=== PATIENT | male | born 1945 | race Caucasian/White ===

== ENCOUNTER 2021-08-03 03:00 | Outpatient (CLI) | payer OTHER, SELFPAY ==
[2021-08-03 12:14] LABS: Source Nasal/Nares
[2021-08-03 15:16] LABS: COVID-19 PCR Negative (Negative)
== END 2021-08-03 03:01 | disposition home or self-care (01) ==
LOC: LBO 03:00
PROVIDERS: PCP Internal Medicine; Visit Provider Ophthalmology
DX: Z20.822 Contact with and (suspected) exposure to COVID-19 (principal); Z01.818 Encounter for other preprocedural examination
CPT/HCPCS: 87635

== ENCOUNTER 2021-08-05 07:58 | Day surgery (SDC) | payer OTHER, SELFPAY ==
[2021-08-05 08:30] VITALS: BP 153/79; PULSE 76; RESP 18; TEMP 36.5; O2SAT 94
[2021-08-05] MEDS: Tropicam./Phenyleph. (1/2.5%) 5 ML BTL OS ×3 (08:52→09:04)
--- NOTE | 2021-08-05 09:27 | ANES.PREOP_ITS ---
General Info Date of Service Date Performed: 08/05/21 Height: 6 ft Weight: 113.4 kg Body Mass Index (BMI): 33.9 Surgical Procedure: Operation Date: 08/05/21 10:40 Proposed Procedures Side Surgeon p Cataract Extraction with IOL Implant Left Aristeo Miguel MD Meds Allergies and Home Medications Allergies Allergy/AdvReac Type Severity Reaction Status Date / Time No Known Allergies Allergy Verified 08/05/21 08:40 Home Medication Medication Instructions Recorded albuterol sulfate 90 mcg/actuation 2 puff INHALATION Q6H PRN 04/15/21 aerosol inhaler allopurinol 300 mg tablet 300 mg PO DAILY 04/15/21 atorvastatin 40 mg tablet 20 mg PO DAILY tab 04/15/21 budesonide-formoterol HFA 160 2 puff INHALATION BID 04/15/21 mcg-4.5 mcg/actuation aerosol inhaler cetirizine 10 mg tablet 10 mg PO DAILY PRN 04/15/21 finasteride 5 mg tablet 5 mg PO DAILY 04/15/21 furosemide 40 mg tablet 40 mg PO DAILY 04/15/21 mometasone 0.1 % topical cream 1 applic TOPICAL DAILY 04/15/21 multivitamin,tx-minerals 1 cap PO DAILY 04/15/21 omeprazole 20 mg capsule,delayed 20 mg PO DAILY 04/15/21 release pimecrolimus 1 % topical cream 1 applic TOPICAL BID 04/15/21 propranolol 80 mg tablet 80 mg PO DAILY tab 04/15/21 Current Visit Medications: Current Medications Generic Name Dose Route Start Last Admin Trade Name Freq PRN Reason Stop Dose Admin Acetaminophen 1,000 mg 08/05/21 06:00 Acetaminophen 500 Mg Tab PO Q4H PRN PRN Miscellaneous Medication 0 ml 08/05/21 06:00 Prednisolone 1%, Moxifloxacin 0.5%, Nepafenac 0.1% 5ml Btl OS DIRECTED [facility] Miscellaneous Medication 0 ml 08/05/21 06:00 08/05/21 09:04 Tropicam./Phenyleph. 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 Kuo [facility] History of esophagogastroduodenoscopy (EGD) 07/18/2016 Dr. uKo [facility] History of gastric surgery stomach infection Tobacco Smoking/Tobacco Use Status: Former Tobacco Use Alcohol Alcohol Intake: current Alcohol intake frequency: 3 or more drinks per day Alcohol type: hard liquor Substance Use Substance use: Never Substance use type: does not use Vital Signs and Lab Results Vital Signs Most Recent Vital Signs in EMR: Most Recent Vital Signs Temp Pulse Resp BP Pulse Ox 36.5 C 76 18 153/79 H 94 08/05/21 08:30 08/05/21 08:30 08/05/21 08:30 08/05/21 08:30 08/05/21 08:30 Lab Results Blood Type / Crossmatch: No Data to Display Complete Blood Count: No Data to Display Complete Metabolic Panel: No Data to Display Liver Function Panel: No Data to Display Coagulation Panel: No Data to Display Cardiac Panel: No Data to Display Arterial Blood Gas: No Data to Display Venous Blood Gas: No Data to Display Pancreas Panel: No Data to Display Thyroid Panel: No Data to Display Infectious Disease: Coronavirus (COVID-19)(PCR) Negative (Negative) 08/03/21 09:53 08/03/21 Coronavirus 2019 Source Nasal/Nares 08/03/21 09:53 08/03/21 Blood Cultures: No Data to Display Toxicology Panel: No Data to Display Anesthesia Assessment and Plan Anesthesia History Personal History: No History of Anesthesia Complications Family History: No Family History of Anesthesia Complications Exercise Tolerance Exercise Tolerance: Metabolic Equivalents<4 Pertinent Negatives Pertinent Negatives: No Symptoms of GERD Cardiac & Pulmonary Exam Cardiac Exam: Normal S1/S2 Heart Sounds Pulmonary Exam: Clear Bilateral Breath Sounds Implantable Cardiac Device Does patient have a Pacemaker or an ICD?: No Airway Exam Known Difficult Airway: No Mallampati Class: 3 Mouth Opening: Normal (> 3cm) Thyromental Distance: Less than 3 cm Neck Range of Motion: Full ROM Neck Circumference: Normal Teeth Condition: Normal Dentition ASA Classification ASA Score: ASA 2 Emergency Case?: No NPO Status NPO Status: NPO Clears >2 hours, Solids >8 hours Anesthesia Plan Resuscitation Status: Full Code Anesthesia Technique: MAC Anesthesia Airway Planned: Natural Airway Monitors Used: Standard Monitors
[2021-08-05 09:29] VITALS: BMI 33.9
[2021-08-05] MEDS: Lidocaine 2% Jelly 6 ML SYR (10:11)
[2021-08-05] MEDS: Povidone-Iodine Ophth 30 ML BTL (10:11)
[2021-08-05] MEDS: Tetracaine 0.5% 4 ML BTL OS (10:11)
[2021-08-05] MEDS: Duovisc Viscoelastic System EACH 1 EACH (10:16)
[2021-08-05] MEDS: Balanced Salt Soln.-PLUS 500 ML BAG (10:21)
[2021-08-05] MEDS: Trypan Blue 0.06% 0.5 ML SYR (10:25)
[2021-08-05 10:50] VITALS: BP 171/59; PULSE 78; RESP 18; TEMP 36.3; O2SAT 95
--- NOTE | 2021-08-05 10:51 | W.PM.DSUDISC ---
Discharge Plan Disposition Patient Disposition: HOME Condition: Good Discharge Details Attending Provider: Aristeo Miguel Primary Care Provider: Jhonatan Almazan Home Meds and New Rx's Prescriptions: No Action mometasone 0.1 % cream 1 applic topical DAILY RF: 0 albuterol sulfate 90 mcg/actuation HFA aerosol inhaler 2 puff inhalation Q6H PRNRF: 0 atorvastatin 40 mg tablet 20 mg PO DAILY RF: 0 finasteride 5 mg tablet 5 mg PO DAILY RF: 0 furosemide 40 mg tablet 40 mg PO DAILY RF: 0 pimecrolimus 1 % cream 1 applic topical BID RF: 0 propranolol 80 mg tablet 80 mg PO DAILY RF: 0 multivitamin,tx-minerals Capsule 1 cap PO DAILY RF: 0 omeprazole 20 mg capsule,delayed release(DR/EC) 20 mg PO DAILY RF: 0 budesonide-formoterol 160-4.5 mcg/actuation HFA aerosol inhaler 2 puff inhalation BID RF: 0 allopurinol 300 mg tablet 300 mg PO DAILY RF: 0 cetirizine [24Hour Allergy] 10 mg tablet 10 mg PO DAILY PRNRF: 0 Discharge Instructions Stand Alone Forms: Post-op Topical Cataract, Chhaya Simeon (DSU) Discharge Orders Discharge Orders: Discharge Order (Routine); Ordered 08/05/21 Ordered By: Aristeo Miguel DS: Diagnosis Discharge Diagnosis (1) Cortical cataract of left eye: Status: Resolved (2) Nuclear sclerotic cataract of left eye: Status: Resolved (3) Mature cataract: Status: Resolved
--- NOTE | 2021-08-05 10:52 | ROE_ITS ---
Date of service: 08/05/21 Time of Service: 10:52 Operative Note Operative Note DATE OF PROCEDURE: 08/05/21 PRE-OP DIAGNOSIS: Dense nuclear/cortical cataract, left eye Absent red reflex, left eye POST-OP DIAGNOSIS: same PROCEDURE: Cataract extraction using phacoemulsification with intraocular lens implant, left eye, using capsular staining with Vision Blue SURGEON: Aristeo Miguel ANESTHESIA TYPE: Local By Surgeon and MAC Refer to Anesthesia Record COMPLICATIONS: None Patient was transported to: same day Patient's condition: stable Implants: [employer] / [employer] Tecnis [id number] Indications: Progressive decreased vision due to cataract, left eye, with poor red reflex Procedure Description: CATARACT SURGERY OPERATIVE REPORT PREOPERATIVE DIAGNOSIS: 1. Dense nuclear/cortical cataract, left eye 2. Poor red reflex secondary to #1 POSTOPERATIVE DIAGNOSIS: Same OPERATION: 1. Cataract extraction using phacoemulsification with posterior chamber intraocular lens implant, left eye. 2. Capsular staining with Vision Blue IOL: IOL Sleeve Fixer/Model: [employer] Pep[employer] / [employer]ZO Tecnis [id number] IOL Power: + 22.5 diopters IOL Serial Number: [id number] Optic Diameter: 6.0 mm Haptic/Overall Diameter: 13.0 mm PHACO INFO: Jero [employer] Vision System with OZil and Active [employer]uidics Cumulative Dispersed Energy (CDE): 35.65 seconds SURGEON: Aristeo Miguel MD, JALEESA ANESTHESIA: Monitored A [facility] (MAC), with local sub-tenon's anesthetic infiltration COMPLICATIONS: None SPECIMENS: None INDICATIONS FOR PROCEDURE: The patient is a 75-year-old gentleman with history of diminished visual acuity in his left eye secondary to the development of a dense nuclear/cortical cataract. Visual acuity is counting fingers only. The option of cataract surgery was offered to the patient and he felt he was symptomatic enough that he wished to proceed. PROCEDURE: The correct surgical eye was identified and marked as the left eye and the pupil was dilated in the preoperative area using mydriatics and cyclo plegics. The dilated pupil size was 7.0 mm. Oral sedation was administered in the form of an Imprimis MKO Melt (midazolam 3mg/ketamine 25mg/ondansetron 2mg). The patient was brought to the operating room where cardiopulmonary monitoring was instituted and surgical time-out was performed, confirming the correct operative eye and IOL power. Topical anesthesia was administered and ophthalmic povidone-iodine 5% was instilled into the conjunctival fornices. Lidocaine gel was applied to the cornea and the timothy-ocular area was prepped with Betadine 10% solution and draped in the usual sterile fashion for intraocular surgery, including an aperture drape. A Tegaderm transparent film dressing was cut in half and used to cover the lashes and lid margins. Care was taken to sequester the lashes and lid margins under the Tegaderm dressing. A lid speculum was placed between the lids of the operative eye and the Bandar-Cynthia operating microscope was maneuvered into position. Cinthia scissors were then used to make a conjunctival buttonhole approximately 6mm posterior to the limbus in the inferonasal quadrant. Blunt dissection was carried out to expose bare sclera, and a blunt-tipped sub-tenon?s anesthesia cannula was introduced and passed posteriorly along the globe where non- preserved plain lidocaine was injected into posterior sub-Tenon?s space. A sideport knife was used to make a paracentesis port superiorly/superiortemporally. Intraocular phenylephrine/lidocaine was injected int the anterior chamber.. Air was then injected into the anterior chamber, followed by Vision Blue, which was painted over the anterior capsule and then irrigated out using BSS. The anterior chamber was filled with viscoelastic. A 2.4mm keratome knife was used to create a half-thickness groove at the limbus and then to construct a three-plane near-clear corneal tunnel extending 2.0mm into clear cornea at the 3:00 position. A flap was raised on the anterior capsule and capsulorhexis forceps were used to complete a continuous curvilinear capsulorhexis of 5.0 mm. The capsule was noted to be quite thin. Balanced salt solution was then used to perform cortical cleaving hydrodissection and nuclear hydrodelineation until the lens could be freely rotated within the capsular bag. The lens nucleus was then disassembled and removed within the capsular bag and iris plane using phacoemulsification. Residual cortical material was removed using the 45-degree angled silicone I/A tip with 0.3mm port. The posterior capsule was carefully polished to remove as much residual lens epithelial cells as safely possible. The capsular bag was then inflated and the anterior chamber deepened with viscoelastic. The lens implant described above was inserted into the capsular bag using the [employer] [place] Injector. A Kuglen hook was used to dial the IOL into position. Residual viscoelastic was then removed first from posterior to the IOL, then from the anterior chamber using the I/A handpiece. The lens implant was noted to center nicely within the capsular bag. The incisions were stromally hydrated, and the anterior chamber was reformed using BSS. Then 0.5cc of moxifloxacin 1.0mg/ml were injected into the capsular bag and anterior chamber. The incisions were checked with a Weck spear and found to be secure. Several drops of ophthalmic povidone-iodine 5% were then applied to the eye followed by two drops of Imprimis combination prednisolone/moxifloxacin/nepafenac solution. The drapes were removed and a clear plastic protective eye shield was placed over the eye. The patient was then returned to Same Day Surgery in stable condition.
[2021-08-05 11:15] VITALS: BP 160/55; PULSE 74; RESP 18; TEMP 36.3; O2SAT 96
--- NOTE | 2021-08-05 11:33 | W.ANESPOSTOP ---
Postoperative Evaluation Date, Time and Location Date Performed: 08/05/21 Time Performed: 11:20 Patient Location: Day Surgery Unit Vital Signs Most Recent Imported Vital Signs: Most Recent Vital Signs Temp Pulse Resp BP Pulse Ox 36.3 C L 74 18 160/55 H 96 08/05/21 11:15 08/05/21 11:15 08/05/21 11:15 08/05/21 11:15 08/05/21 11:15 Pain Score Most Recent Pain Score: Most Recent Pain Score Pain Level 0 08/05/21 11:15 Assessment Mental Status: Awake (Alert & Oriented to Patient Baseline) Airway and Respiratory Function: Patent airway with normal (patient baseline) respiratory exam Cardiovascular Function: Hemodynamically Stable Hydration Status: Adequately Hydrated Nausea & Vomiting: No Nausea or Vomiting Pain: Pt. Denies Any Pain Peripheral Nerve Block: Patient did not receive a nerve block
== END 2021-08-05 11:35 | disposition home or self-care (01) ==
PROVIDERS: PCP Internal Medicine; Visit Provider Ophthalmology
PROC: (CPT 66984; principal; 2021-08-05 10:30)
DX: H25.12 Age-related nuclear cataract, left eye (principal); K70.30 Alcoholic cirrhosis of liver without ascites; F10.20 Alcohol dependence, uncomplicated; J44.9 Chronic obstructive pulmonary disease, unspecified
CPT/HCPCS: 66984; V2632

== ENCOUNTER 2021-08-17 01:16 | Outpatient (CLI) | payer MEDICARE, SELFPAY ==
[2021-08-17 14:22] LABS: Source Nasal/Nares
[2021-08-17 18:27] LABS: COVID-19 PCR Negative (Negative)
== END 2021-08-17 01:17 | disposition home or self-care (01) ==
LOC: LBO 01:16
PROVIDERS: PCP Internal Medicine; Visit Provider Ophthalmology
DX: Z20.822 Contact with and (suspected) exposure to COVID-19 (principal); Z01.818 Encounter for other preprocedural examination
CPT/HCPCS: 87635

== ENCOUNTER 2021-08-19 06:32 | Day surgery (SDC) | payer MEDICARE, OTHER, SELFPAY ==
[2021-08-19 06:35] VITALS: BP 147/64; PULSE 92; RESP 18; TEMP 36.8; O2SAT 93
[2021-08-19] MEDS: Tropicam./Phenyleph. (1/2.5%) 5 ML BTL OD ×3 (06:50→07:00)
--- NOTE | 2021-08-19 07:01 | ANES.PREOP_ITS ---
General Info Date of Service Date Performed: 08/19/21 Height: 6 ft Weight: 112.3 kg Body Mass Index (BMI): 33.5 Surgical Procedure: Operation Date: 08/19/21 07:40 Proposed Procedures Side Surgeon p Cataract Extraction with IOL Implant Right Aristeo Miguel MD Meds Allergies and Home Medications Allergies Allergy/AdvReac Type Severity Reaction Status Date / Time No Known Allergies Allergy Verified 08/19/21 06:46 Home Medication Medication Instructions Recorded albuterol sulfate 90 mcg/actuation 2 puff INHALATION Q6H PRN 04/15/21 aerosol inhaler allopurinol 300 mg tablet 300 mg PO DAILY 04/15/21 atorvastatin 40 mg tablet 20 mg PO DAILY tab 04/15/21 budesonide-formoterol HFA 160 2 puff INHALATION BID 04/15/21 mcg-4.5 mcg/actuation aerosol inhaler cetirizine 10 mg tablet 10 mg PO DAILY PRN 04/15/21 finasteride 5 mg tablet 5 mg PO DAILY 04/15/21 furosemide 40 mg tablet 40 mg PO DAILY 04/15/21 mometasone 0.1 % topical cream 1 applic TOPICAL DAILY 04/15/21 multivitamin,tx-minerals 1 cap PO DAILY 04/15/21 omeprazole 20 mg capsule,delayed 20 mg PO DAILY 04/15/21 release pimecrolimus 1 % topical cream 1 applic TOPICAL BID 04/15/21 propranolol 80 mg tablet 80 mg PO DAILY tab 04/15/21 Current Visit Medications: Current Medications Generic Name Dose Route Start Last Admin Trade Name Freq PRN Reason Stop Dose Admin Acetaminophen 1,000 mg 08/19/21 06:00 Acetaminophen 500 Mg Tab PO Q4H PRN PRN Miscellaneous Medication 0 ml 08/19/21 06:00 Prednisolone 1%, Moxifloxacin 0.5%, Nepafenac 0.1% 5ml Btl OD DIRECTED [facility] Miscellaneous Medication 0 ml 08/19/21 06:00 08/19/21 07:00 Tropicam./Phenyleph. 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 H60.8X3 Impacted cerumen, bilateral H61.23 Cortical cataract of left eye H26.9 Nuclear sclerotic cataract of left eye H25.12 Mature cataract H26.8 Nuclear sclerotic cataract of right eye H25.11 Cortical cataract of right eye H26.9 Medical History Medical History Alcohol dependence syndrome Alcoholic cirrhosis of liver Anemia Asteatosis cutis Cholelithiasis Chronic obstructive lung disease Gouty arthropathy Hypertension Keratoderma Psoriasis Seasonal allergies Seborrheic keratosis Surgical History Surgical History History of amputation toes History of appendectomy History of cataract surgery History of colonoscopy 07/18/[address] [facility] History of esophagogastroduodenoscopy (EGD) 07/18/[address] [facility] History of gastric surgery stomach infection Tobacco Smoking/Tobacco Use Status: Former Tobacco Use Alcohol Alcohol Intake: current Alcohol intake frequency: 3 or more drinks per day Alcohol type: hard liquor Substance Use Substance use: Never Substance use type: does not use Vital Signs and Lab Results Vital Signs Most Recent Vital Signs in EMR: Most Recent Vital Signs Temp Pulse Resp BP Pulse Ox 36.8 C 92 H 18 147/64 H 93 08/19/21 06:35 08/19/21 06:35 08/19/21 06:35 08/19/21 06:35 08/19/21 06:35 Lab Results Blood Type / Crossmatch: No Data to Display Complete Blood Count: No Data to Display Complete Metabolic Panel: No Data to Display Liver Function Panel: No Data to Display Coagulation Panel: No Data to Display Cardiac Panel: No Data to Display Arterial Blood Gas: No Data to Display Venous Blood Gas: No Data to Display Pancreas Panel: No Data to Display Thyroid Panel: No Data to Display Infectious Disease: Coronavirus (COVID-19)(PCR) Negative (Negative) 08/17/21 13:30 08/17/21 Coronavirus 2019 Source Nasal/Nares 08/17/21 13:30 08/17/21 Blood Cultures: No Data to Display Toxicology Panel: No Data to Display Anesthesia Assessment and Plan Anesthesia History Personal History: No History of Anesthesia Complications Family History: No Family History of Anesthesia Complications Exercise Tolerance Exercise Tolerance: Metabolic Equivalents<4 Pertinent Negatives Pertinent Negatives: No Symptoms of GERD, No Major Cardiovascular Symptoms or Complaints and No Major Pulmonary Symptoms or Complaints Cardiac & Pulmonary Exam Cardiac Exam: Normal S1/S2 Heart Sounds Pulmonary Exam: Clear Bilateral Breath Sounds Implantable Cardiac Device Does patient have a Pacemaker or an ICD?: No Airway Exam Known Difficult Airway: No Mallampati Class: 3 Mouth Opening: Normal (> 3cm) Thyromental Distance: Less than 3 cm Neck Range of Motion: Full ROM Neck Circumference: Normal Teeth Condition: Normal Dentition ASA Classification ASA Score: ASA 2 Emergency Case?: No NPO Status NPO Status: NPO Clears >2 hours, Solids >8 hours Anesthesia Plan Resuscitation Status: Full Code Anesthesia Technique: MAC Anesthesia Airway Planned: Natural Airway Monitors Used: Standard Monitors
[2021-08-19 07:10] VITALS: BMI 33.5
[2021-08-19] MEDS: Povidone-Iodine Ophth 30 ML BTL (07:26)
[2021-08-19] MEDS: Lidocaine 2% Jelly 6 ML SYR (07:26)
[2021-08-19] MEDS: Tetracaine 0.5% 4 ML BTL OD (07:26)
[2021-08-19] MEDS: Balanced Salt Soln.-PLUS 500 ML BAG (07:35)
[2021-08-19] MEDS: Duovisc Viscoelastic System EACH 1 EACH (07:35)
[2021-08-19] MEDS: Trypan Blue 0.06% 0.5 ML SYR (07:40)
[2021-08-19 07:55] VITALS: BP 170/72; PULSE 85; RESP 18; TEMP 37.1; O2SAT 92
--- NOTE | 2021-08-19 07:55 | W.PM.DSUDISC ---
Discharge Plan Disposition Patient Disposition: HOME Condition: Good Discharge Details Attending Provider: Aristeo Miguel Primary Care Provider: Jhonatan Almazan Home Meds and New Rx's Prescriptions: No Action mometasone 0.1 % cream 1 applic topical DAILY RF: 0 albuterol sulfate 90 mcg/actuation HFA aerosol inhaler 2 puff inhalation Q6H PRNRF: 0 atorvastatin 40 mg tablet 20 mg PO DAILY RF: 0 finasteride 5 mg tablet 5 mg PO DAILY RF: 0 furosemide 40 mg tablet 40 mg PO DAILY RF: 0 pimecrolimus 1 % cream 1 applic topical BID RF: 0 propranolol 80 mg tablet 80 mg PO DAILY RF: 0 multivitamin,tx-minerals Capsule 1 cap PO DAILY RF: 0 omeprazole 20 mg capsule,delayed release(DR/EC) 20 mg PO DAILY RF: 0 budesonide-formoterol 160-4.5 mcg/actuation HFA aerosol inhaler 2 puff inhalation BID RF: 0 allopurinol 300 mg tablet 300 mg PO DAILY RF: 0 cetirizine [24Hour Allergy] 10 mg tablet 10 mg PO DAILY PRNRF: 0 Discharge Instructions Stand Alone Forms: Post-op Topical Cataract, Chhaya Simeon (DSU) Discharge Orders Discharge Orders: Discharge Order (Routine); Ordered 08/19/21 Ordered By: Aristeo Miguel DS: Diagnosis Discharge Diagnosis (1) Nuclear sclerotic cataract of right eye: Status: Resolved (2) Cortical cataract of right eye: Status: Resolved (3) Posterior subcapsular age-related cataract, right eye: Status: Resolved
--- NOTE | 2021-08-19 07:57 | W.PM.OP ---
Date of service: 08/19/21 Time of Service: 07:57 Operative Note Operative Note DATE OF PROCEDURE: 08/19/21 PRE-OP DIAGNOSIS: Nuclear/cortical/posterior subcapsular cataract, right eye Poor red reflex, right eye secondary to cataract POST-OP DIAGNOSIS: same PROCEDURE: Cataract extraction using phacoemulsification with intraocular lens implantation, right eye, using capsular staining with Vision Blue SURGEON: Aristeo Miguel ANESTHESIA TYPE: Local By Surgeon and MAC Refer to Anesthesia Record PATHOLOGY: none sent COMPLICATIONS: None Patient was transported to: same day Patient's condition: stable Implants: Pepito [employer] / [employer] Tecnis [id number] Indications: Progressive visual loss due to cataract, right eye Procedure Description: CATARACT SURGERY OPERATIVE REPORT PREOPERATIVE DIAGNOSIS: 1. Nuclear/cortical/posterior subcapsular cataract, right eye 2. Poor red reflex secondary to #1 POSTOPERATIVE DIAGNOSIS: Same OPERATION: 1. Cataract extraction using phacoemulsification with posterior chamber intraocular lens implant, right eye. 2. Capsular staining with Vision Blue IOL: IOL Manager Community Development/Model: Pepito [employer] Pepito / ENZO Tecnis ZCB00 IOL Power: + 22.0 diopters IOL Serial Number: [id number] Optic Diameter: 6.0mm Haptic/Overall Diameter: 13.0mm PHACO INFO: Jero Xoopiturion Vision System with OZil and Active Fluidics Cumulative Dispersed Energy (CDE): 8.96 seconds SURGEON: Aristeo Miguel MD, JALEESA ANESTHESIA: Monitored Anesthesia Care (MAC), with local sub-tenon's anesthetic infiltration COMPLICATIONS: None SPECIMENS: None INDICATIONS FOR PROCEDURE: The patient is a 75-year-old gentleman with history of significant bilateral cataracts, left eye worse than right. He had a very advanced cataract in his left eye which has since undergone surgery and is doing well postoperatively. He now presents for cataract surgery in the right eye to remove a significant nuclear/cortical/posterior subcapsular cataract there. PROCEDURE: The correct surgical eye was identified and marked as the right eye and the pupil was dilated in the preoperative area using mydriatics and cycloplegics. The dilated pupil size was 7.0 mm. Oral sedation was administered in the form of an Imprimis MKO Melt (midazolam 3mg/ketamine 25mg/ondansetron 2mg). The patient was brought to the operating room where cardiopulmonary monitoring was instituted and surgical time-out was performed, confirming the correct operative eye and IOL power. Topical anesthesia was administered and ophthalmic povidone-iodine 5% was instilled into the conjunctival fornices. Lidocaine gel was applied to the cornea and the timothy-ocular area was prepped with Betadine 10% solution and draped in the usual sterile fashion for intraocular surgery, including an aperture drape. A Tegaderm transparent film dressing was cut in half and used to cover the lashes and lid margins. Care was taken to sequester the lashes and lid margins under the Tegaderm dressing. A lid speculum was placed between the lids of the operative eye and the Bandar-Cynthia operating microscope was maneuvered into position. Cinthia scissors were then used to make a conjunctival buttonhole approximately 6mm posterior to the limbus in the inferonasal quadrant. Blunt dissection was carried out to expose bare sclera, and a blunt-tipped sub-tenon?s anesthesia cannula was introduced and passed posteriorly along the globe where non-preserved plain lidocaine was injected into posterior sub-Tenon?s space. A sideport knife was used to make a paracentesis port inferotemporally. Intraocular phenylephrine/lidocaine was injected into the anterior chamber. Air was injected into the anterior chamber, followed by Vision Blue, which was painted over the anterior capsule and then irrigated out with BSS. The anterior chamber was filled with viscoelastic. A 2.4mm keratome knife was used to create a half-thickness groove at the limbus and then to construct a three-plane near-clear corneal tunnel extending 2.0mm into clear cornea superiortemporally. A flap was raised on the anterior capsule and capsulorhexis forceps were used to complete a continuous curvilinear capsulorhexis of 5.0 mm. Balanced salt solution was then used to perform cortical cleaving hydrodissection and nuclear hydrodelineation until the lens could be freely rotated within the capsular bag. The lens nucleus was then disassembled and removed within the capsular bag and iris plane using phacoemulsification. Residual cortical material was removed using the I/A handpiece. The posterior capsule was carefully polished to remove as much residual lens epithelial cells as safely possible. The capsular bag was then inflated and the anterior chamber deepened with viscoelastic. The lens implant described above was inserted into the capsular bag using the ENZO [place] Injector. A Kuglen hook was used to dial the IOL into position. Residual viscoelastic was then removed first from posterior to the IOL, then from the anterior chamber using the I/A handpiece. The lens implant was noted to center nicely within the capsular bag. The incisions were stromally hydrated, and the anterior chamber was reformed using BSS. Then 0.5cc of moxifloxacin 1.0mg/ml were injected into the capsular bag and anterior chamber. The incisions were checked with a Weck spear and found to be secure. Several drops of ophthalmic povidone-iodine 5% were then applied to the eye followed by two drops of Imprimis combination prednisolone/moxifloxacin/nepafenac solution. The drapes were removed and a clear plastic protective eye shield was placed over the eye. The patient was then returned to Same Day Surgery in stable condition.
--- NOTE | 2021-08-19 08:13 | W.ANESPOSTOP ---
Postoperative Evaluation Date, Time and Location Date Performed: 08/19/21 Time Performed: 08:00 Patient Location: Day Surgery Unit Vital Signs Most Recent Imported Vital Signs: Most Recent Vital Signs Temp Pulse Resp BP Pulse Ox 37.1 C 85 18 170/72 H 92 08/19/21 07:55 08/19/21 07:55 08/19/21 07:55 08/19/21 07:55 08/19/21 07:55 Pain Score Most Recent Pain Score: Most Recent Pain Score Pain Level 0 08/19/21 07:55 Assessment Mental Status: Awake (Alert & Oriented to Patient Baseline) Airway and Respiratory Function: Patent airway with normal (patient baseline) respiratory exam Cardiovascular Function: Hemodynamically Stable Hydration Status: Adequately Hydrated Nausea & Vomiting: No Nausea or Vomiting Pain: Pt. Denies Any Pain Peripheral Nerve Block: Patient did not receive a nerve block
[2021-08-19 08:25] VITALS: BP 150/73; PULSE 86; RESP 18; TEMP 36.8; O2SAT 86
[2021-08-19 09:20] VITALS: BP 129/59; PULSE 79; RESP 18; TEMP 36.8; O2SAT 94
[2021-08-19] MEDS: Albuterol/Ipratropium 3 ML UPD VIAL UPD (09:27)
--- NOTE | 2021-08-19 09:30 | NUR.NOTE ---
Updraft given with good results. Spacer given for MDI with instructions. Verbalizes understanding. Took updraft tubing for home use with home nebulizer. Nursing Note:
== END 2021-08-19 09:26 | disposition home or self-care (01) ==
PROVIDERS: PCP Internal Medicine; Visit Provider Ophthalmology
PROC: (CPT 66984; principal; 2021-08-19 07:30)
DX: H25.041 Posterior subcapsular polar age-related cataract, right eye (principal); I10 Essential (primary) hypertension; D64.9 Anemia, unspecified; K70.30 Alcoholic cirrhosis of liver without ascites; F10.20 Alcohol dependence, uncomplicated
CPT/HCPCS: 66984; V2632; J7620

== ENCOUNTER 2022-11-18 14:58 | Emergency (ER) | payer MEDICARE, SELFPAY ==
[2022-11-18] VITALS (29 sets, daily range): BP systolic 131–166; BP diastolic 52–83; PULSE 72–94; RESP 10–31; TEMP 36.7; O2SAT 81–99
--- NOTE | 2022-11-18 15:00 | DI.RAD_ITS ---
Exam(s) XR TIB/FIB LT EXAM: XR TIB/FIB LT CLINICAL HISTORY: fracture. TECHNIQUE: 2D digital imaging was performed of the left tibia and fibula. Four images were obtained. AP and lateral views were obtained. COMPARISON: No exams were available for comparison FINDINGS: BONES: There is an acute fracture in the distal 3rd of the left fibula. There is complete lateral di splacement of the distal fracture. The fracture is comminuted. There is also a complete oblique fra cture through the distal 3rd of the left tibia. There is almost 1 shaft's with lateral displacement of the distal fracture. On the lateral view there is a question of a nondisplaced oblique fracture o f the neck of the proximal fibula. No bony destructive lesion is seen. Visualized portion of knee an d ankle joints are unremarkable. SOFT TISSUE: Atherosclerosis is present. There is soft tissue swelling of the distal leg. There is a soft tissue defect seen at the medial aspect of the lower leg. Please correlate for the possibilit y of an open fracture. IMPRESSION: 1. Comminuted displaced fractures involving the distal tibia and fibula as described above. 2. Soft tissue defect in the medial lower leg. Please correlate for possibility of an open fracture. 3. Question of a nondisplaced fracture involving the neck of the proximal fibula best appreciated on the lateral view. This area is compromised due to the cast material. DATA REPOSITORY: RADIATION DOSE DELIVERED:
--- NOTE | 2022-11-18 15:03 | ED.GENADUL_ITS ---
Discharge Plan Disposition Patient Disposition: Transfer-Acute Inpatient Care Specific Acute Inpt Facility: [facility] Discharge Details Chief Complaint: Fall/Non TraumaCriteria Clinical Impression: Open fracture of left fibula and tibia Primary Care Provider: Jhonatan Almazan ED Provider: Roberto Veronica Home Meds and New Rx's Prescriptions: No Action mometasone 0.1 % cream 1 applic topical DAILY albuterol sulfate 90 mcg/actuation HFA aerosol inhaler 2 puff inhalation Q6H PRN atorvastatin 40 mg tablet 20 mg PO DAILY finasteride 5 mg tablet 5 mg PO DAILY furosemide 40 mg tablet 40 mg PO DAILY pimecrolimus 1 % cream 1 applic topical BID propranolol 80 mg tablet 80 mg PO DAILY multivitamin,tx-minerals Capsule 1 cap PO DAILY omeprazole 20 mg capsule,delayed release(DR/EC) 20 mg PO DAILY budesonide-formoterol 160-4.5 mcg/actuation HFA aerosol inhaler 2 puff inhalation BID allopurinol 300 mg tablet 300 mg PO DAILY cetirizine [24Hour Allergy] 10 mg tablet 10 mg PO DAILY PRN ipratropium-albuterol [DuoNeb] 0.5 mg-3 mg(2.5 mg base)/3 mL Solution For Nebulization 3 ml INHALATION 3XD MDD 3 PRN (Reason: Shortness Of Breath Or Wheezing) ammonium lactate 12 % Lotion 1 applic TOPICAL 1XD guaifenesin 600 mg Tablet Extended Release 600 mg PO BID azithromycin 250 mg Tablet 250 mg PO 1XD prednisone 20 mg Tablet 20 mg PO DAILY docusate sodium 50 mg Tablet 50 mg PO 1XD calcium 500 mg Tablet 500 mg PO 1XD petrolatum Ointment 1 applic TOPICAL 1XD amlodipine 5 mg Tablet 5 mg PO 1XD tacrolimus 0.1 % Ointment 1 applic TOPICAL 1XD ferrous sulfate 325 mg (65 mg iron) Tablet 325 mg PO 1XD triamcinolone acetonide 0.1 % Lotion 1 applic TOPICAL 1XD Medical Decision Making 75-year-old gentleman with isolated distal open tib-fib fracture on the left. This was irrigated and then splinted. Antibiotics and tetanus updated. Other findings of hypokalemia 3. Potassium IV ordered. Alcohol intoxication at 176. [facility] declined the transfer. I discussed the case with [facility], at facility. Awaiting an answer from them. Accepted for transfer by Dr. Cassie FLAHERTY Ortho ED to ED transfer as 515pm HPI General Date/Time Provider Initiated Documentation: 11/18/22 15:03 . HPI Narrative: 78-year-old gentleman presented to the emergency department via EMS after eliza taining a fracture to the left tib-fib area. According to EMS report he simply twisted and felt a snap in his leg. Fracture is reported as open. Patient arrives to the emergency department dry heaving. According to EMS the heaving started on arrival to the hospital. Patient does endorse having a few alcoholic beverages. No head trauma* Related Data Home Medications Medication Instructions Recorded Confirmed albuterol sulfate 90 mcg/actuation 2 puff inhalation Q6H PRN 04/15/21 11/18/22 aerosol inhaler allopurinol 300 mg tablet 300 mg PO DAILY 04/15/21 11/18/22 atorvastatin 40 mg tablet 20 mg PO DAILY 04/15/21 11/18/22 budesonide-formoterol HFA 160 2 puff inhalation BID 04/15/21 08/17/21 mcg-4.5 mcg/actuation aerosol inhaler cetirizine 10 mg tablet (24Hour 10 mg PO DAILY PRN 04/15/21 08/19/21 Allergy) finasteride 5 mg tablet 5 mg PO DAILY 04/15/21 11/18/22 furosemide 40 mg tablet 40 mg PO DAILY 04/15/21 11/18/22 mometasone 0.1 % topical cream 1 applic topical DAILY 04/15/21 11/18/22 multivitamin,tx-minerals 1 cap PO DAILY 04/15/21 11/18/22 omeprazole 20 mg capsule,delayed 20 mg PO DAILY 04/15/21 11/18/22 release pimecrolimus 1 % topical cream 1 applic topical BID 04/15/21 08/17/21 propranolol 80 mg tablet 80 mg PO DAILY 04/15/21 08/19/21 amlodipine 5 mg tablet 5 mg PO 1XD 11/18/22 11/18/22 ammonium lactate 12 % lotion 1 applic topical 1XD 11/18/22 11/18/22 azithromycin 250 mg tablet 250 mg PO 1XD 11/18/22 11/18/22 calcium 500 mg tablet 500 mg PO 1XD 11/18/22 11/18/22 docusate sodium 50 mg tablet 50 mg PO 1XD 11/18/22 11/18/22 ferrous sulfate 325 mg (65 mg 325 mg PO 1XD 11/18/22 11/18/22 iron) tablet guaifenesin 600 mg tablet,extended 600 mg PO BID 11/18/22 11/18/22 release ipratropium 0.5 mg-albuterol 3 mg 3 ml inhalation 3XD PRN Shortness 11/18/22 11/18/22 (2.5 mg base)/3 mL nebulization Of Breath Or Wheezing soln mineral oil-hydrophil petrolat 1 applic topical 1XD 11/18/22 11/18/22 topical ointment (petrolatum topical ointment) prednisone 20 mg tablet 20 mg PO DAILY 11/18/22 11/18/22 tacrolimus 0.1 % topical ointment 1 applic topical 1XD 11/18/22 11/18/22 triamcinolone acetonide 0.1 % 1 applic topical 1XD 11/18/22 11/18/22 lotion Allergies Allergy/AdvReac Type Severity Reaction Status Date / Time No Known Allergies Allergy Verified 08/19/21 06:46 Review of Systems Narrative: Review of systems as -10 point unless otherwise specified in the HPI. 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 [facility] History of esophagogastroduodenoscopy (EGD) 07/18/[address] [facility] History of gastric surgery stomach infection Family History Father No problems noted. Mother No problems noted. Sister No problems noted. Son No problems noted. Social History Smoking/Tobacco Use Status: Former Tobacco Use Quit Date: 05/29/21 Smoking risk assessment performed?: Yes Alcohol Intake: current Alcohol Intake frequency: 3 or more drinks per day Alcohol type: hard liquor Drug use: Never Substance use type: does not use current occupation: retired Pets and animals: No What is your relationship status?: Panel score (0-1 are the most socially isolated patients): 0 Do you feel safe at home: Yes Do you feel safe in your relationship?: Yes Exam Narrative Exam Narrative: General: A,A Ox3, Calm, no apparent distress, well developed, pleasant and cooperative Head Size/Shape: normocephalic, atraumatic Eyes Pupils: PERRLA Extraocular Mobility: intact and symmetrical Conjunctiva: non-injected, anicteric, no discharge Ears, Nose, Throat Nares: patent bilaterally Oral Cavity: moist Neck: no masses, no crepitus Lymph Nodes: no cervical lymphadenopathy Respiratory Respiratory Effort: no dyspnea Auscultation: clear to auscultation bilaterally, normal breath sounds, no wheezing, no rales/crackles Cardiovascular Heart Auscultation: regular rate and rhythm, normal S1, normal S2, no murmurs, no rubs, no gallops, Pulse Quality: +2 equal bilaterally, location(s) Abdomen Inspection and Palpation: soft, non-tender, non-distended, no hepatosplenomegaly Musculoskeletal System Joints, Bones, and Muscles: no deformities Extremities: warm and well-perfused, no cyanosis, capillary refill <2 seconds Skin Skin Inspection: no rash, no lesions, no bruising Neurological Motor: normal tone, normal strength, moving all extremities equally Reflexes: deep tendon reflexes 2+ bilaterally, no clonus Psychiatric: good insight, good judgement, normal mood and affect Course After washout at the bedside antibiotics and tetanus, I had a full discussion with [facility]. At 1610 I was informed that [facility] does not have capacity to take this open tib-fib fracture. They do not consider this a trauma nor do they consider this critical care. Procedures Orthopedic Splinting/Casting Injury #1: Lower Extremity Injury Location: lower leg Lower Extremity Immobilizer: posterior splint and knee immobilizer Additional Comments: Prior to splinting, patient was evaluated with a liter of normal saline. The patient actually had a dressing that had to be removed prior to the washout. The dressing was for his chronic wounds. Dressing was intact other than some blood
[2022-11-18] MEDS: MORPHine 4 MG/ML SYR ×2 (15:28)
[2022-11-18] MEDS: Ondansetron 4 MG/2 ML VIAL (15:29)
--- NOTE | 2022-11-18 15:29 | NUR.NOTE ---
Nursing Note: MD gave verbal order for morphine 4mg, the 4mg of zofran. Pt was still in large amount of pain. MD AP then gave verbal order for another 4mg of morphine. Patient remaining vitally stable.
--- NOTE | 2022-11-18 15:33 | NUR.NOTE ---
Nursing Note: 1528 Contacted the [facility] about their availability for orthopedics. Sterling the business services administrator stated that they did have ortho at this time.
[2022-11-18] MEDS: ceFAZolin 2,000 MG in Normal Saline 100 ML 200 MG IVPB (15:37)
--- NOTE | 2022-11-18 16:05 | DI.VRAD_ITS ---
PROCEDURE INFORMATION: Exam: XR Left Tibia and Fibula Exam date and time: 11/18/2022 3:28 PM Age: 76 years old Clinical indication: Other: Fracture TECHNIQUE: Imaging protocol: Radiologic exam of the left tibia and fibula. Views: 2 views. COMPARISON: No relevant prior studies available. FINDINGS: Bones/joints: Overlying cast obscures bone detail. Comminuted fracture of the distal 3rd of the shaft of the fibula with complete lateral displacement of the major distal fracture fragment. Comminuted fracture of the distal 3rd of the shaft of the tibia with 1 shaft width lateral displacement of the major distal fracture fragment. No dislocation of the knee and ankle. Osteophytes of the ankle. Vascular calcifications in the posterior distal thigh extending into the popliteal region. Soft tissues: No obvious abnormality IMPRESSION: Displaced fractures of the distal tibia and fibula. Dictated and Authenticated by: Ry Sapp MD. Ordering:KEO Mejia MD
[2022-11-18 16:14] LABS: Abs Immature Grans 0.04 10^3/uL (0.0-0.06); Absolute Basophil Count 0.09 10^3/uL (0.0-0.2); Absolute Eosinophil Count 0.39 10^3/uL (0.0-0.7); Absolute Lymphocyte Count 2.37 10^3/uL (1.2-3.4); Absolute Monocyte Count 1.07 10^3/uL (0.1-0.8); Absolute Neutrophil Count 4.89 10^3/uL (1.2-6.7); Eosinophils % 4.4; HGB 12.7 g/dL (13.5-17.5); Immature Grans % 0.5; Lymphocytes % 26.8; MCH 31.8 pg (27.0-33.0); MCHC 32.6 % (32.0-36.0); MCV 98 fL (80-95); Monocytes % 12.1; Neutrophils % 55.2; Platelet Count 143 10^3/uL (130-400); RBC 3.99 10^6/uL (4.36-5.78); RDW 14.1 % (11.8-14.1); WBC 8.85 10^3/uL (4.4-10.8)
[2022-11-18 16:25] LABS: Anion Gap 10.6 mmol/L (3-11); BUN 12 mg/dL (7-18); CO2 29.4 mmol/L (21.0-32.0); CREATININE 1.2 mg/dL (0.70-1.30); Calcium 8.1 mg/dL (8.5-10.1); Chloride 108 mmol/L (98-107); ETHANOL BLOOD 176.3 mg/dL (<10); Estimated GFR 63.07 (mL/min/1.73m2); Glucose 83 mg/dL (74-106); Sodium 148 mmol/L (136-145)
[2022-11-18] MEDS: POTASSIUM CHLORIDE 10 MEQ/100 ML BAG 100 MEQ IVPB (16:44)
--- NOTE | 2022-11-18 18:05 | NUR.NOTE ---
Nursing Note: Called the son and he is now aware that his father has been transfered to [facility] ED for care.
== END 2022-11-18 17:45 | disposition short-term general hospital (02) ==
PROVIDERS: Emergency Provider Emergency Medicine; PCP Internal Medicine
DX: S82.302B Unspecified fracture of lower end of left tibia, initial encounter for open fracture type I or II (principal); S82.832B Other fracture of upper and lower end of left fibula, initial encounter for open fracture type I or II; I10 Essential (primary) hypertension; Z23 Encounter for immunization; X50.1XXA Overexertion from prolonged static or awkward postures, initial encounter
CPT/HCPCS: 29505; 80048; 90471; 96365; 96367; 99285; 73590; 80320; 85025; J0690; J2270; J2405; J3480

== ENCOUNTER 2022-12-26 12:58 | Emergency (ER) | payer MEDICARE, OTHER, SELFPAY ==
[2022-12-26 13:02] VITALS: PULSE 90; RESP 18; TEMP 36.9
[2022-12-26 13:05] VITALS: O2SAT 95
[2022-12-26 13:06] VITALS: BP 91/44
--- NOTE | 2022-12-26 14:46 | W.ED.GENAD ---
Discharge Plan Disposition Patient Disposition: Home Condition: Good Discharge Details Clinical Impression: Constipation Primary Care Provider: Jhonatan Almazan ED Provider: Sergo De La Rosa Home Meds and New Rx's Prescriptions: New polyethylene glycol 3350 [Miralax] 17 gram/dose powder 17 g PO BID Qty: 510 3RF Continued mometasone 0.1 % cream 1 applic topical DAILY albuterol sulfate 90 mcg/actuation HFA aerosol inhaler 2 puff inhalation Q6H PRN atorvastatin 40 mg tablet 20 mg PO DAILY finasteride 5 mg tablet 5 mg PO DAILY furosemide 40 mg tablet 40 mg PO DAILY pimecrolimus 1 % cream 1 applic topical BID propranolol 80 mg tablet 80 mg PO DAILY multivitamin,tx-minerals Capsule 1 cap PO DAILY omeprazole 20 mg capsule,delayed release(DR/EC) 20 mg PO DAILY budesonide-formoterol 160-4.5 mcg/actuation HFA aerosol inhaler 2 puff inhalation BID allopurinol 300 mg tablet 300 mg PO DAILY cetirizine [24Hour Allergy] 10 mg tablet 10 mg PO DAILY PRN ipratropium-albuterol 0.5 mg-3 mg(2.5 mg base)/3 mL Solution For Nebulization 3 ml INHALATION 3XD MDD 3 PRN (Reason: Shortness Of Breath Or Wheezing) ammonium lactate 12 % Lotion 1 applic TOPICAL 1XD guaifenesin 600 mg Tablet Extended Release 600 mg PO BID azithromycin 250 mg Tablet 250 mg PO 1XD prednisone 20 mg Tablet 20 mg PO DAILY docusate sodium 50 mg Tablet 50 mg PO 1XD calcium 500 mg Tablet 500 mg PO 1XD petrolatum Ointment 1 applic TOPICAL 1XD amlodipine 5 mg Tablet 5 mg PO 1XD tacrolimus 0.1 % Ointment 1 applic TOPICAL 1XD ferrous sulfate 325 mg (65 mg iron) Tablet 325 mg PO 1XD triamcinolone acetonide 0.1 % Lotion 1 applic TOPICAL 1XD Discharge Instructions Instructions: Constipation (ED) Additional Instructions: You were seen in the emergency department for constipation. We gave you an enema and you had a large bowel movement. You felt better and wanted to leave. This seems reasonable. Start taking the MiraLAX 1 cap twice a day with a large glass of water. Drink plenty of fluids additionally to help prevent constipation. Follow-up with your primary care doctor as they may want to put you on even more stool softeners. return for any abdominal pain, recurrent constipation, or any worsening symptoms. Referrals: Jhonatan Almazan MD [Primary Care Provider] - 1 week Medical Decision Making 76-year-old male presents with constipation. He is requesting an enema. No abdominal pain or any nausea or vomiting to suggest small bowel obstruction and says he still been pooping some. He is requesting an enema and we will order this for him. May need to consider fecal disimpaction. Has a stage I ulceration in the area around the rectum likely secondary from the repeated attempts to pass stool. Does not appear infectious at this time. Doubt other cause of the patient's symptoms. We will continue to monitor while awaiting initial response to enema. 1524 Patient had large bowel movement after enema. Feels better and would like to leave. This seems reasonable. Will discharge with return precautions. Medical Records Medical records reviewed: Yes I reviewed the patient's medical records. HPI General Mode of arrival: ambulatory. Date/Time Provider Initiated Documentation: 12/26/22 13:08. Limitations to Documentation: no limitations. Information obtained by: patient. HPI Narrative: 76-year-old gentleman history of BPH, COPD, hypertension, hyperlipidemia is now presenting with constipation. Says he gets recurrent constipation. He is requesting an enema. Denies any abdominal pain. No nausea or vomiting and he has continued to eat. He says he poops and strains and only gets a small amount out. No black or bloody stools. He states he has been straining so much he now has a skin breakdown on his butt cheeks. Related Data Home Medications Medication Instructions Recorded Confirmed albuterol sulfate 90 mcg/actuation 2 puff inhalation Q6H PRN 04/15/21 11/18/22 aerosol inhaler allopurinol 300 mg tablet 300 mg PO DAILY 04/15/21 11/18/22 atorvastatin 40 mg tablet 20 mg PO DAILY 04/15/21 11/18/22 budesonide-formoterol HFA 160 2 puff inhalation BID 04/15/21 08/17/21 mcg-4.5 mcg/actuation aerosol inhaler cetirizine 10 mg tablet (24Hour 10 mg PO DAILY PRN 04/15/21 08/19/21 Allergy) finasteride 5 mg tablet 5 mg PO DAILY 04/15/21 11/18/22 furosemide 40 mg tablet 40 mg PO DAILY 04/15/21 11/18/22 mometasone 0.1 % topical cream 1 applic topical DAILY 04/15/21 11/18/22 multivitamin,tx-minerals 1 cap PO DAILY 04/15/21 11/18/22 omeprazole 20 mg capsule,delayed 20 mg PO DAILY 04/15/21 11/18/22 release pimecrolimus 1 % topical cream 1 applic topical BID 04/15/21 08/17/21 propranolol 80 mg tablet 80 mg PO DAILY 04/15/21 08/19/21 amlodipine 5 mg tablet 5 mg PO 1XD 11/18/22 11/18/22 ammonium lactate 12 % lotion 1 applic topical 1XD 11/18/22 11/18/22 azithromycin 250 mg tablet 250 mg PO 1XD 11/18/22 11/18/22 calcium 500 mg tablet 500 mg PO 1XD 11/18/22 11/18/22 docusate sodium 50 mg tablet 50 mg PO 1XD 11/18/22 11/18/22 ferrous sulfate 325 mg (65 mg 325 mg PO D 11/18/22 11/18/22 iron) tablet guaifenesin 600 mg tablet,extended 600 mg PO BID 11/18/22 11/18/22 release ipratropium 0.5 mg-albuterol 3 mg 3 ml inhalation 3XD PRN Shortness 11/18/22 11/18/22 (2.5 mg base)/3 mL nebulization Of Breath Or Wheezing soln mineral oil-hydrophil petrolat 1 applic topical 1XD 11/18/22 11/18/22 topical ointment (petrolatum topical ointment) prednisone 20 mg tablet 20 mg PO DAILY 11/18/22 11/18/22 tacrolimus 0.1 % topical ointment 1 applic topical 1XD 11/18/22 11/18/22 triamcinolone acetonide 0.1 % 1 applic topical D 11/18/22 11/18/22 lotion polyethylene glycol 3350 17 17 g PO BID #510 grams 12/26/22 gram/dose oral powder (Miralax) Previous Rx's Medication Instructions Recorded polyethylene glycol 3350 17 17 g PO BID #510 grams 12/26/22 gram/dose oral powder (Miralax) Allergies Allergy/AdvReac Type Severity Reaction Status Date / Time No Known Allergies Allergy Verified 12/26/22 13:04 General Stated Complaint: GenMedical JOANA: 4 Review of Systems Constitutional Constitutional: Denies chills, Denies fever(s) and Denies headache(s) Eyes Eyes: Denies change in vision ENT Ears, Nose, Mouth, and Throat: Denies headache(s) and Denies odynophagia Cardiovascular Cardiovascular: Denies chest pain and Denies dyspnea Respiratory Respiratory: Denies dyspnea Gastrointestinal Gastrointestinal: Denies abdominal pain, Reports constipation, Denies diarrhea, Denies nausea, Denies odynophagia and Denies vomiting Genitourinary Genitourinary: Denies dysuria Musculoskeletal Musculoskeletal: Denies myalgias Integumentary/Breasts Skin/Breast: Denies changing lesions Neurologic Neurologic: Denies behavioral changes and Denies headache(s) Psychiatric Psychiatric: Denies behavioral changes Endocrine Endocrine: Denies heat intolerance Hematologic/Lymphatic Hematologic/Lymphatic: Denies lymphadenopathy [facility] All Active Problems (Updated 12/26/22 @ 15:24 by Sergo De La Rosa MD) Constipation (Acute) Seborrheic dermatitis (Acute) 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 Kuo [facility] History of esophagogastroduodenoscopy (EGD) 07/18/2016 Dr. Kuo [facility] History of gastric surgery stomach infection Family History Father No problems noted. Mother No problems noted. Sister No problems noted. Son No problems noted. Social History Smoking/Tobacco Use Status: Former Tobacco Use Quit Date: 05/29/21 Smoking risk assessment performed?: Yes Alcohol Intake: current Alcohol Intake frequency: 3 or more drinks per day Alcohol type: hard liquor Drug use: Never Substance use type: does not use current occupation: retired Pets and animals: No What is your relationship status?: Panel score (0-1 are the most socially isolated patients): 0 Do you feel safe at home: Yes Do you feel safe in your relationship?: Yes Exam Const General: cooperative Nutritional Appearance: average body habitus Orientation: alert, awake and oriented x3 HENMT Head: normal to inspection Ears: external ears normal Mouth: moist mucous membranes Eyes Pupils: PERRL EOM: EOM intact bilaterally and No nystagmus Neck Neck: full ROM and no tracheal deviation Chest Chest: normal inspection of the chest Resp Auscultation: clear to auscultation bilaterally Cardio Rate: regular rate Rhythm: regular rhythm GI Inspection: normal to inspection Palpation: soft, no guarding, not rigid and nontender Other: Stage I ulceration in the folds of the bilateral butt cheeks from pooping. Back/Spine/Pelvis Back: No no CVA tenderness Thoracic/Lumbar Spine: thoracic and lumbar spine normal to inspection Skin General skin exam: no rashes or lesions noted Neuro General: patient alert, patient awake and patient oriented x3 Cranial Nerves: CN's II-XI intact bilaterally, PERRL and no nystagmus Cognition: normal cognition Motor: muscle tone normal throughout and strength 5/5 throughout Sensory Exam: no sensory deficits noted Extrem General: normal to inspection Course Vital Signs Vital signs: Vital Signs Temperature 36.9 C 12/26/22 13:02 Pulse 90 12/26/22 13:02 Respiratory Rate 18 12/26/22 13:02 Temperature 36.9 C 12/26/22 13:02 Temperature Source Temporal Artery Scan 12/26/22 13:02 Pulse 90 12/26/22 13:02 Respiratory Rate 18 12/26/22 13:02 Respiratory Effort Normal, Non-Labored 12/26/22 13:03 Blood Pressure 91/44 L 12/26/22 13:06 Pulse Oximetry 95 12/26/22 13:05 Oxygen Delivery Method Room Air 12/26/22 13:05 Oxygen Flow Rate 0 12/26/22 13:05
--- NOTE | 2022-12-26 15:22 | NUR.NOTE ---
patient had a medium bowel movement, I wiped his bottom with wipes and emptied the commode.The stool was a medium formed.
[2022-12-26 15:40] VITALS: RESP 18
== END 2022-12-26 15:41 | disposition home or self-care (01) ==
PROVIDERS: Emergency Provider Student in an Organized Health Care Education/Training Program; PCP Internal Medicine
DX: K59.00 Constipation, unspecified (principal)
CPT/HCPCS: 99283

== ENCOUNTER 2023-07-09 04:02 | Outpatient (CLI) | payer OTHER, SELFPAY ==
[2023-07-09] MEDS: Levalbuterol HFA 15 GM INH 4 PUFF IH (11:41)
[2023-07-09] MEDS: Inhaler, Assist Device 1 EACH MC (11:41)
--- NOTE | 2023-07-13 08:20 | W.6MWT ---
Date of service: 07/09/23 Time of Service: 10:23 6 Minute Walk Test Note: 6 Minute Walk Test Distance walked: 200 ft Desaturations: No significant desaturations Heart rate changes: Significant heart rate increase from 41 bpm at rest to 135 at 4 min walking Recommendation: No supplemental O2 needed. With heart rate changes and decreased walk distance, deconditioning or a cardiac pathology are of concern. Kristina Montiel MD Pulmonary & Critical Care Medicine
--- NOTE | 2023-07-13 09:01 | W.PFT ---
Date of service: 07/09/23 Time of Service: 10:33 Pulmonary Function Test Result Indications: COPD Interpretation Spirometry: There is severe airflow limitation. No bronchodilator response. FVC is low. MIP and MEP are decreased. Lung Volumes: There is air trapping Diffusion Capacity: Decreased diffusion Airway Pressure: Increased airways resistance Impression Severe airflow obstruction with air trapping and decreased diffusion. The FVC is low due to severe obstruction. There is also a decreased MIP and MEP. Clinical Correlation therefore is recommended.
== END 2023-07-09 04:03 | disposition home or self-care (01) ==
LOC: RT 04:03
PROVIDERS: PCP Nurse Practitioner Adult Health; Visit Provider Physician Assistant Surgical
DX: J44.9 Chronic obstructive pulmonary disease, unspecified (principal)
CPT/HCPCS: 94060; 94618; 94726; 94729

== ENCOUNTER 2024-02-29 18:41 | Emergency (ER) | payer OTHER, SELFPAY ==
[2024-02-29] VITALS (30 sets, daily range): BP systolic 169–188; BP diastolic 68–77; PULSE 88–109; RESP 12–29; O2SAT 95–100
--- NOTE | 2024-02-29 18:45 | RT.EKG_ITS ---
APPROVED REPORT Exam: Resting ECG Reason for Exam: baseline/screening Patient Location: E HR:88 bpm ECG Measurements Heart Rate 88 AXIS AR 76 P 0 QRSd 144 QRS 60 QT 443 T 43 QTc 536 Conclusion Sinus rhythm...normal P axis, V-rate 60- 99 Right bundle branch block...QRSd>120, terminal axis(90,270) sinus normal axis, prolonged qtc, RBBB
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
--- NOTE | 2024-02-29 18:51 | W.ED.GENAD ---
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 Seborrheic keratosis Surgical History History of cataract surgery History of esophagogastroduodenoscopy (EGD) 07/18/2016 Dr. Kuo [facility] History of colonoscopy 07/18/2016 Dr. Kuo [facility] History of gastric surgery stomach infection History of amputation toes History of appendectomy Family History Father No problems noted. Mother No problems noted. Sister No problems noted. Son No problems noted. Social History (Updated 05/23/23 @ 09:53 by Esther Reilly) Smoking/Tobacco Use Status: Former Tobacco Use Quit Date: 05/29/21 Smoking risk assessment performed?: Yes Alcohol Intake: current Alcohol Intake frequency: 3 or more drinks per day Alcohol type: hard liquor Drug use: Never Substance use type: does not use current occupation: retired Pets and animals: No What is your relationship status?: Panel score (0-1 are the most socially isolated patients): 0 Do you feel safe at home: Yes Do you feel safe in your relationship?: Yes Additional Social history: Referral states Pt quit smoking last year.
[2024-02-29] MEDS: Normal Saline 1,000 ML 150 ML IV (19:15)
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
[2024-02-29 19:59] LABS: Abs Immature Grans 0.14 10^3/uL (0.0-0.06); Absolute Basophil Count 0.04 10^3/uL (0.0-0.2); Absolute Eosinophil Count 0.21 10^3/uL (0.0-0.7); Absolute Lymphocyte Count 0.86 10^3/uL (1.2-3.4); Absolute Monocyte Count 0.55 10^3/uL (0.1-0.8); Absolute Neutrophil Count 4.85 10^3/uL (1.2-6.7); BE (Venous) 1 mmol/L (-2-3); Basophils % 0.6 %; Eosinophils % 3.2 %; HCO3 (Venous) 26 mmol/L (23-28); HCT 26.7 % (40.0-50.0); Immature Grans % 2.1 %; Lymphocytes % 12.9 %; MCV 97 fL (80-95); MPV 9.6 fL (8.0-11.0); Monocytes % 8.3 %; Neutrophils % 72.9 %; O2 Sat (Venous) 62 %; Platelet Count 296 10^3/uL (130-400); RBC 2.76 10^6/uL (4.36-5.78); RDW 15.5 % (11.8-14.1); RDW-SD 54.7 fL; TCO2 (Venous) 25 mmol/L (24-29); WBC 6.65 10^3/uL (4.4-10.8); pCO2 (Venous) 44 mmHg (41-51); pH (Venous) 7.38 (7.31-7.41); pO2 (Venous) 38 mmHg
[2024-02-29 20:01] LABS: Lactate 3.1 mmol/L (0.6-1.4)
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
[2024-02-29 20:29] LABS: AST 37 U/L (15-37); Albumin 2.5 g/dL (3.4-5.0); Alkaline Phosphatase 67 U/L (46-116); Anion Gap 10.2 mmol/L (3-11); BUN 12 mg/dL (7-18); Bilirubin, Total 0.21 mg/dL (0.2-1.0); CO2 26.8 mmol/L (21.0-32.0); CREATININE 1.3 mg/dL (0.70-1.30); Chloride 108 mmol/L (98-107); ETHANOL BLOOD 175.1 mg/dL (<10); Estimated GFR 56.58 (mL/min/1.73m2); Glucose 96 mg/dL (74-106); Lipase 220 U/L (16-77); Sodium 145 mmol/L (136-145); Troponin I < 50 ng/L (< or =60)
[2024-02-29 20:31] LABS: Ammonia 27 umol/L (11-32)
[2024-02-29 20:34] LABS: Potassium 2.9 mmol/L (3.5-5.1)
[2024-02-29 20:40] LABS: Magnesium 1.4 mg/dL (1.8-2.4); TSH (W/Ref FT4) 4.68 uIU/mL (0.36-3.74)
[2024-02-29 20:43] LABS: Procalcitonin < 0.1 ng/mL
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
[2024-02-29 20:46] LABS: ALT 30 U/L (16-63); Calcium 8.5 mg/dL (8.5-10.1)
[2024-02-29 20:56] LABS: FREE T4 1.03 ng/dL (0.76-1.46)
[2024-02-29] MEDS: Normal Saline - Diluent 50 ML VIAL IJ (21:24)
[2024-02-29] MEDS: Omnipaque 350 MG/ML 100 ML BTL IJ (21:25)
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
[2024-02-29] MEDS: MAGNESIUM SULFATE 1 GM/100 ML BAG IVINF (21:30)
[2024-02-29] MEDS: POTASSIUM CHLORIDE 10 MEQ/100 ML BAG 100 MEQ IVINF (21:31)
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
[2024-02-29] MEDS: PIPERACILLIN/TAZO 4.5 GM in Normal Saline 100 ML IVPB (22:46)
[2024-02-29 23:30] LABS: INR 1.1 (0.9-1.1); Prothrombin Time 11.1 sec (9.1-11.1)
[2024-02-29 23:52] LABS: HCT 25.6 % (40.0-50.0); HGB 7.6 g/dL (13.5-17.5)
[2024-03-01] VITALS (18 sets, daily range): BP systolic 191–230; BP diastolic 55–91; PULSE 83–104; RESP 16–29; TEMP 36.7; O2SAT 94–98
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
[2024-03-01] MEDS: Tranexamic Acid 1,000 MG/10 ML VIAL 1000 MG IVP (00:25)
[2024-03-01] MEDS: FLUCONAZOLE 200 MG/100 ML BAG 100 MG IVPB (00:47)
[2024-03-01] MEDS: POTASSIUM CHLORIDE 10 MEQ/100 ML BAG 100 MEQ IVINF (00:48)
[2024-03-01 01:07] LABS: Bilirubin Negative (Negative); Blood Trace-intact (Negative); Clarity Clear (Clear); Glucose Negative (Negative); Ketones Negative (Negative); Leukocyte Esterase Negative (Negative); Nitrite Negative (Negative); Specific Gravity 1.015 (1.005-1.025); Urobilinogen 0.2 mg/dL (Up to 0.2)
[2024-03-01 01:11] LABS: Bacteria Rare HPF (Negative); C & S Indicated? No; Casts Negative LPF (Negative); Crystals Negative HPF (Negative); Epithelial Cells Negative HPF (Negative); Mucus Negative (Negative); RBC 0-2 HPF (0-2); WBC Negative HPF (0-5)
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
== END 2024-03-01 01:59 | disposition short-term general hospital (02) ==
PROVIDERS: Surgery; Emergency Provider Physician Assistant; PCP Nurse Practitioner Adult Health
DX: S01.81XA Laceration without foreign body of other part of head, initial encounter (principal); S50.311A Abrasion of right elbow, initial encounter; K25.1 Acute gastric ulcer with perforation; K70.30 Alcoholic cirrhosis of liver without ascites; J44.9 Chronic obstructive pulmonary disease, unspecified; E66.9 Obesity, unspecified; I45.19 Other right bundle-branch block; I10 Essential (primary) hypertension; Z79.82 Long term (current) use of aspirin; V48.5XXA Car driver injured in noncollision transport accident in traffic accident, initial encounter
CPT/HCPCS: 36415; 36430; 74177; 80053; 82805; 83690; 84145; 86850; 86900; 86901; 86920; 87040; 93005; 96365; 96375; 99285; 70450; 71260; 72125; 73080; 80320; 81003; 81015; 82140; 83605; 83735; 84439; 84443; 84484; 85014; 85018; 85025; 85610; 93010; J1450; J2543; J3475; J3480; J3490; P9016

== ENCOUNTER 2024-07-25 22:31 | Outpatient (REF) | payer OTHER, SELFPAY ==
[2024-07-25 12:13] LABS: Bilirubin Negative (Negative); Blood Large (Negative); Clarity Cloudy (Clear); Glucose Negative (Negative); Ketones Negative (Negative); Leukocyte Esterase Moderate (Negative); Nitrite Negative (Negative); Urobilinogen 0.2 mg/dL (Up to 0.2)
[2024-07-25 12:25] LABS: C & S Indicated? Yes; RBC >50 HPF (0-2); WBC >50 HPF (0-5)
== END 2024-07-25 22:32 | disposition home or self-care (01) ==
LOC: LBN 22:31
PROVIDERS: PCP Nurse Practitioner Adult Health; Visit Provider Nurse Practitioner
DX: R30.0 Dysuria (principal); R31.9 Hematuria, unspecified; R35.0 Frequency of micturition
CPT/HCPCS: 81003; 81015; 87086

== ENCOUNTER 2024-12-23 19:24 | Outpatient (REF) | payer MEDICARE, SELFPAY | END 2024-12-23 19:25 | disposition home or self-care (01) | LOC: LBN 19:24 | PROVIDERS: PCP Nurse Practitioner Adult Health; Visit Provider Nurse Practitioner Family | DX: L98.9 Disorder of the skin and subcutaneous tissue, unspecified (principal) | CPT/HCPCS: 87077; 87070; 87186; 87205 ==